=== PATIENT | male | born 1965 | race Caucasian/White ===

== ENCOUNTER 2020-05-23 12:08 | Emergency (ER) | payer OTHER ==
[~2020-05-23] VITALS: Ht 165.1 cm; Wt 99.8 kg
[2020-05-23] MEDS ORDERED: CEFIXIME400 MG PO (13:47)
[2020-05-23] MEDS ORDERED: PROTONIX 20 MG20 MG PO (13:47)
[2020-05-23] MEDS ORDERED: HUMALOG100 UNIT/1 SUBQ (13:47)
[2020-05-23] MEDS ORDERED: LEVEMIR FL100 UNIT/2 SUBQ (13:48)
[2020-05-23 13:52] LABS: MCHC 34.4 g/dL (28.0-37.0); WBC 2.1 thou/uL (4.0-11.0)
[2020-05-23 13:54] LABS: HEMATOCRIT 33.2 % (42.0-52.0); HEMOGLOBIN 11.4 gm/dL (14.0-18.0); MCH 34.1 pg (26.0-34.0); MCV 99.2 fL (80.0-100.0); RBC 3.34 mil/uL (4.50-6.00); RDW 16.6 % (10.5-14.5)
[2020-05-23 14:03] LABS: URINE BILIRUBIN 2+ (Negative); URINE BLOOD NEGATIVE (Negative); URINE CLARITY CLEAR; URINE COLOR YELLOW; URINE GLUCOSE-RANDOM* NEGATIVE (Negative); URINE KETONES TRACE (Negative); URINE LEUKOCYTES-REFLEX NEGATIVE (Negative); URINE PROTEIN (DIPSTICK) 1+ (Negative); URINE SPECIFIC GRAVITY 1.025 (1.005-1.035)
[2020-05-23 14:15] LABS: ICTOTEST (BILI CONFIRMATORY) Positive (Negative); URINE NITRITE-REFLEX POSITIVE (Negative)
[2020-05-23 14:17] LABS: APTT 32.9 Seconds (24.5-32.8); INR 1.4
[2020-05-23 14:24] LABS: CASTS None Seen /LPF (None Seen); MUCUS >6 Heavy strn/LPF (None Seen); SQUAMOUS 0-3 Few /LPF (0-3)
[2020-05-23 14:25] LABS: BACTERIA-REFLEX 1-9 Few /HPF (None Seen); CALCIUM OXALATE 4-10 Moderate /LPF (None Seen); URINE RBC None Seen /HPF (0-2); URINE WBC-REFLEX 0-5 Rare /HPF (0-5)
[2020-05-23 14:27] LABS: ANION GAP 8 mmol/L (7-16); BUN 6 mg/dL (7-18); CALCIUM 7.8 mg/dL (8.5-10.1); CHLORIDE 108 mmol/L (98-107); CO2 24 mmol/L (21-32); CREATININE 0.8 mg/dL (0.7-1.3); GLUCOSE 95 mg/dL (74-106); POTASSIUM 3.8 mmol/L (3.5-5.1); SODIUM 140 mmol/L (136-145)
[2020-05-23 14:41] LABS: ALBUMIN 1.9 g/dL (3.4-5.0); LIPASE 147 U/L (73-393); SGOT 93 U/L (15-37); SGPT 44 U/L (30-65); TOTAL BILIRUBIN 4.6 mg/dL (0.2-1.0); TOTAL PROTEIN 6.1 g/dL (6.4-8.2); TROPONIN-I <0.06 ng/mL (<0.06)
[2020-05-23 14:53] LABS: ABSOLUTE NEUTROPHILS 1.7 thou/uL (1.4-8.2); ANISOCYTOSIS 1+
[2020-05-23 15:08] LABS: PLATELET COUNT 32 thou/uL (150-400)
--- NOTE | 2020-05-23 16:24 | EKG ---
[facility] [place] [address] ELECTROCARDIOGRAM REPORT Name: SKY JO Room #: REG [facility].#: [id number] Admission: 05/23/20 Attend Phys: Discharge: Date of : 69 Report #: [id number] THIS REPORT FOR: cc: FAM - No family physician/PCP FAM - No family physician/PCP Travis Balderrama MD [facility] ~ THIS REPORT FOR: //name// [facility] ED Test Date: 2020-05-23 Test Time: 12:48:19 Pat Name: SKY SAMUEL Department: Room: Gender: Hardwood Floor Sander: [facility] : 1965 Requested By: Haris Mesa Order Number: [id number] MD: Travis Balderrama Measurements Intervals [place] Rate: 68 P: 54 LA: 166 QRS: 9 QRSD: 101 T: 28 QT: 454 QTc: 483 Interpretive Statements Sinus rhythm Abnormal R-wave progression, early transition No previous ECG available for comparison Electronically Signed On 05-23-2020 16:24:30 CDT by Travis Balderrama [email or web address] <ELECTRONICALLY SIGNED> By: Travis Balderrama MD, [facility] 05/23/20 1624 1248 1248 Travis Balderrama MD, [facility] /EPI
[2020-05-23] MEDS ORDERED: TRAMADOL 50 MG50 MG PO (18:24)
[2020-05-23] MEDS ORDERED: ONDANSETRON ODT8 MG PO (18:24)
[2020-05-23 18:33] LABS: BF NUCLEATED CELLS 218 /mm3; BF RBC 1966 /mm3
[2020-05-23 18:35] LABS: CLARITY CLEAR; COLOR YELLOW; TOTAL VOLUME 35 mL
[2020-05-23 18:48] LABS: SOURCE PERITONEAL
[2020-05-23 18:50] LABS: BF NEUTROPHILS 27 %
[2020-05-23 18:51] LABS: BF MACROPHAGE 28 %
[2020-05-23 19:35] VITALS: BP 124/73
[2020-05-27 12:06] LABS: BODY FLUID AMYLASE 27 U/L (())
[2020-05-27 12:06] LABS: BODY FLUID GLUCOSE 94 mg/dL (()); BODY FLUID LDH 72 IU/L (()); BODY FLUID PROTEIN 0.9 g/dL (())
[2020-05-31 09:55] LABS: SOURCE PERITONEAL
[2020-05-31 09:56] LABS: SOURCE PERITONEAL
== END 2020-05-23 19:37 | disposition home or self-care (01) ==
LOC: EDBD 12:08 → ER 12:08
PROVIDERS: Emergency Medicine
DX: R18.8 Other ascites (principal); E16.2 Hypoglycemia, unspecified; K76.9 Liver disease, unspecified; D69.6 Thrombocytopenia, unspecified; K42.9 Umbilical hernia without obstruction or gangrene; E66.9 Obesity, unspecified; Z88.6 Allergy status to analgesic agent; Z79.4 Long term (current) use of insulin; Z79.2 Long term (current) use of antibiotics